=== PATIENT | female | born 1950 | race Caucasian/White ===

== ENCOUNTER 2017-05-26 18:30 | Emergency (ER) | payer OTHER ==
--- NOTE | 2017-05-26 18:38 | PDOC ---
History of Present Illness <Ruebn Weiss - Last Filed: 05/27/17 00:01> - History of Present Illness Initial Comments: 05/26/17 19:23 67-year-old female with a history of diabetes, hypertension, hyperlipidemia, syncope presents with a syncopal episode. The patient was in her usual state of health, was making lasagna for [employer] dinner when she felt a sudden wave of heat and tunnel vision and sensation that she needed to have a bowel movement. She then went to the bathroom had a large bowel movement and then stood up and passed out. The patient was able to control her fall to the ground , the episode was witnessed by her sister who said that she was out of it for almost 3 minutes but then quickly came back to her baseline. Her sister stated that she did not have any shakng movements. No urine incontinence. No confusion. Pt reports she did not drink any water today. Pt states this was similar to her previous episodes of syncope which have not been worked up. She wishes to go home as she states she feels much better now. <Noa Gurrola - Last Filed: 05/27/17 02:07> - General Chief Complaint: Syncope/Near Syncope Stated Complaint: SYNCOPE,FALL Time Seen by Provider: 05/26/17 18:37 Past History <Ruben Weiss - Last Filed: 05/27/17 00:01> <Noa Gurrola - Last Filed: 05/27/17 02:07> - Past Medical History Allergies/Adverse Reactions: Allergies Allergy/AdvReac Type Severity Reaction Status Date / Time No Known Allergies Allergy Verified 05/26/17 18:45 Home Medications: Ambulatory Orders Atorvastatin Ca [Lipitor] 20 mg PO DAILY 05/26/17 Losartan Potassium 50 mg PO DAILY 05/26/17 Metformin Xr [Glucophage *Xr* -] 500 mg PO DAILY 05/26/17 Review of Systems - Review of Systems Comments:: 05/26/17 20:18 GENERAL/CONSTITUTIONAL: No fever or chills. No weakness. HEAD, EYES, EARS, NOSE AND THROAT: No change in vision. No ear pain or discharge. No sore throat. GASTROINTESTINAL: No nausea, vomiting, diarrhea or constipation. GENITOURINARY: No dysuria, frequency, or change in urination. CARDIOVASCULAR: No chest pain or shortness of breath. RESPIRATORY: No cough, wheezing, or hemoptysis. MUSCULOSKELETAL: No joint or muscle swelling or pain. No neck or back pain. SKIN: No rash NEUROLOGIC: +Loss of consciousness. +Light headed. No headache, vertigo, or change in strength/sensation. ENDOCRINE: No increased thirst. No abnormal weight change. HEMATOLOGIC/LYMPHATIC: No anemia, easy bleeding, or history of blood clots. ALLERGIC/IMMUNOLOGIC: No hives or skin allergy. <Ruben Weiss - Last Filed: 05/27/17 00:01> *Physical Exam - Vital Signs Last Vital Signs Temp Pulse Resp BP Pulse Ox 98.3 F 82 18 145/69 99 05/26/17 18:36 05/26/17 18:36 05/26/17 18:36 05/26/17 18:36 05/26/17 18:40 - Physical Exam Comments: 05/26/17 20:19 GENERAL: Awake, alert, and fully oriented, in no acute distress HEAD: No signs of trauma EYES: PERRLA, EOMI, sclera anicteric, conjunctiva clear ENT: Auricles normal inspection, hearing grossly normal, nares patent, oropharynx clear without exudates. Moist mucosa NECK: Normal ROM, supple, no lymphadenopathy, JVD, or masses LUNGS: Breath sounds equal, clear to auscultation bilaterally. No wheezes, and no crackles HEART: Regular rate and rhythm, normal S1 and S2, no murmurs, rubs or gallops ABDOMEN: Soft, nontender, normoactive bowel sounds. No guarding, no rebound. No masses EXTREMITIES: Normal range of motion, no edema. No clubbing or cyanosis. No cords , erythema, or tenderness BACK: No midline spinal tenderness in cervical/thoracic/lumbar region NEUROLOGICAL: Normal speech, cranial nerves intact, negative pronator drift, 5/ 5 strength in all 4 extremities, normal sensation to light touch in all 4 extremities, normal cerebellar exam, normal gait, normal reflexes and tone SKIN: Warm, Dry, normal turgor, no rashes or lesions noted. <Ruben Weiss - Last Filed: 05/27/17 00:01> Heart Score/ECG Review #1 05/26/17 19:34 Normal sinus rhythm, rate 83. Normal axis and intervals. No ST elevations or T- wave inversions. <Noa Gurrola - Last Filed: 05/27/17 02:07> ED Treatment Course - LABORATORY CBC & Chemistry Diagram: 05/26/17 18:47 05/26/17 18:47 - ADDITIONAL ORDERS Additional order review: Laboratory Results 05/26/17 18:47 Sodium 140 Potassium 3.5 Chloride 103 Carbon Dioxide 29 Anion Gap 8 BUN 11 Creatinine 0.8 Creat Clearance w eGFR > 60 Random Glucose 212 H Calcium 8.6 Total Bilirubin 0.3 AST 15 ALT 26 Alkaline Phosphatase 119 H Creatine Kinase 136 Troponin I < 0.02 Total Protein 7.0 Albumin 3.5 05/26/17 18:47 RBC 3.98 MCV 92.9 MCHC 33.4 RDW 12.9 MPV 9.3 Neutrophils % 60.2 Lymphocytes % 28.8 Monocytes % 6.7 Eosinophils % 3.8 Basophils % 0.5 - Medications Given in the ED: ED Medications Discontinued Medications Generic Name Dose Route Start Last Admin Trade Name Freq PRN Reason Stop Dose Admin Sodium Chloride 1,000 ml 05/26/17 19:20 05/26/17 19:30 Normal Saline - IV 05/26/17 19:21 1,000 ml ONCE ONE Administration <Ruben Weiss - Last Filed: 05/27/17 00:01> - LABORATORY CBC & Chemistry Diagram: 05/26/17 18:47 05/26/17 18:47 <Noa Gurrola - Last Filed: 05/27/17 02:07> Medical Decision Making - Medical Decision Making EXAM: X-ray chest DATE: 2017-05-26 20:12:58 IMAGES: 3 HISTORY: Syncope REPORT Lungs, heart, mediastinum, pleura, bones: No acute abnormality seen, except as noted below. IMPRESSION: No acute chest disease is seen. Read by: Vicente Mcgee MD 05/27/17 00:01 <Ruben Weiss - Last Filed: 05/27/17 00:01> - Medical Decision Making 05/26/17 19:36 67-year-old female history of diabetes, hypertension, hyperlipidemia presents with syncopal episode. Vitals within normal limits. Exam within normal limits. EKG normal and nonischemic. Episode consistent with likely vasovagal syncope, possibly in the setting of dehydration. Will check labs including 2 troponins and CXR. 05/26/17 23:31 Labs wnl, including trop x2. Pt completely asymptomatic in the ED. CXR on my read unremarkable. Likely vasovagal syncope however given the pt has comorbidities and due to age, I offered observation overnight for arrhythmia but pt would like to go home to open [employer] gifts with her grandchildren. I advised her to come back if she had any new, worsening, or concerning symptoms. I discussed the physical exam findings, ancillary test results and final diagnoses with the patient. I answered all of the patient's questions. The patient was satisfied with the care received and felt comfortable with the discharge plan and treatment plan. The patient will call their primary care physician within 24 hours to arrange follow-up and will return to the Emergency Department with any new, persistent or worsening symptoms. <Noa Gurrola - Last Filed: 05/27/17 02:07> *DC/Admit/Observation/Transfer - Attestations Scribe Attestion: 05/26/17 20:19 Documentation prepared by Ruben Weiss, acting as medical dir for Noa Gurrola MD. <Ruben Weiss - Last Filed: 05/27/17 00:01> - Discharge Dispostion Admit: No - Attestations Physician Attestion: 05/26/17 23:36 I, Dr. Noa Gurrola MD, attest that this document has been prepared under my direction and personally reviewed by me in its entirety. I further attest, that it accurately reflects all work, treatment, procedures and medical decision -making performed by me. <Noa Gurrola - Last Filed: 05/27/17 02:07> Diagnosis at time of Disposition: Syncope - Discharge Dispostion Disposition: HOME Condition at time of disposition: Stable - Referrals Referrals: Prateek Ang MD [Primary Care Provider] - - Patient Instructions Printed Discharge Instructions: DI for Syncope in Adults (Fainting) Additional Instructions: Follow-up with the primary care doctor within 2-3 days. Return to the emergency department if you have any new, worsening or concerning symptoms. Print Language: SLOVENIAN
[2017-05-26 18:45] VITALS: TEMP 98.3; BMI 27.1
[2017-05-26 19:06] LABS: BASO % 0.5 % (0-2.0); EOS # 0.3 # (0-4.5); EOS % 3.8 % (0-4.5); LYMPH # 2.5 (8-40); MCH 31.1 pg (25.7-33.7); MCHC 33.4 g/dl (32.0-36.0); MEAN CELL VOLUME 92.9 fl (80-96); MEAN PLT VOLUME 9.3 fl (7.5-11.1); MONO # 0.6 # (3.8-10.2); NEUT # 5.2 # (42.8-82.8); NEUT % 60.2 % (42.8-82.8); PLATELET COUNT 304 K/MM3 (134-434); RDW 12.9 % (11.6-15.6); WHITE BLOOD COUNT 8.6 K/mm3 (4.0-10.0)
[2017-05-26] MEDS ORDERED: SODIUM CHLORIDE 0.9% 500 ML INFUS.BAG IV ONE (19:20)
[2017-05-26 19:38] LABS: ALBUMIN 3.5 g/dl (3.4-5.0); ANION GAP 8 (8-16); CALCIUM 8.6 mg/dL (8.5-10.1); CO2 29 mmol/L (21-32); CREATININE 0.8 mg/dL (0.55-1.02); GLUCOSE,RANDOM 212 mg/dL (74-106); SGOT/AST 15 U/L (15-37); SGPT/ALT 26 U/L (12-78)
[2017-05-26 19:41] LABS: ALK PHOS 119 U/L (45-117); BILIRUBIN,TOTAL 0.3 mg/dL (0.2-1.0); CPK 136 IU/L (26-192); TROPONIN I < 0.02 ng/ml (0.00-0.05)
[2017-05-26 23:48] VITALS: BP 125/79; PULSE 80
--- NOTE | 2017-05-27 15:26 | EKG ---
Test Reason : Blood Pressure : / mmHG Vent. Rate : 083 BPM Atrial Rate : 083 BPM P-R Int : 148 ms QRS Dur : 078 ms QT Int : 382 ms P-R-T Axes : 052 -26 025 degrees QTc Int : 448 ms NORMAL SINUS RHYTHM NORMAL ECG NO PREVIOUS ECGS AVAILABLE Confirmed by NARENDRA OLEARY MD ([id number]) on 05/27/2017 3:26:26 PM Referred By: Confirmed By:NARENDRA OLEARY MD
== END 2017-05-26 23:48 | disposition home or self-care (01) ==
LOC: JER 18:30
DX: R55 Syncope and collapse (principal)
CPT/HCPCS: 36415; 71020-TC; 80053; 82550; 84484; 85025; 93005; 93010; 99285-25